=== PATIENT | male | born 1980 | race Caucasian/White ===

== ENCOUNTER 2019-05-14 10:11 | Emergency (ER) | payer OTHER, SELFPAY ==
--- NOTE | 2019-05-14 10:17 | ED.GENADULT ---
HPI - General Adult General Chief complaint: Upper Respiratory Infection Stated complaint: sore throat Time Seen by Provider: 05/14/19 10:17 Source: patient Mode of arrival: ambulatory Limitations: no limitations History of Present Illness HPI narrative: 38-year-old male patient presents to the [facility] with complaints of sore throat and swollen tonsils for about 6 days now. Patient denies any fevers, coughing, chest pain or shortness of breath. Patient states he has had a little bit of a stuffy nose and drainage to the back of the throat. Patient states he did get a flu shot this year. Patient does work as a nurse at [employer]. Denies any abdominal pain, nausea, vomiting or diarrhea. Related Data Allergies Allergy/AdvReac Type Severity Reaction Status Date / Time BLACK OLIVES Allergy Severe Anaphylactic Uncoded 07/27/11 11:53 Shock Review of Systems Review of Systems: Narrative: CONSTITUTIONAL: Denies fever, chills, or sweats. EYES: Denies visual changes, redness, or discharge. ENT: Denies rhinorrhea, congestion, sore throat, or otalgia. CARDIOVASCULAR: Denies chest pain, palpitations, or edema. RESPIRATORY: Denies cough or dyspnea. GASTROINTESTINAL: Denies abdominal pain, nausea, vomiting, or diarrhea. GENITOURINARY: Denies dysuria or hematuria. SKIN: Denies rash or itching. MUSCULOSKELETAL: Denies back pain, joint pain, or myalgia. NEUROLOGIC: Denies headache, numbness, or weakness. PSYCHIATRIC: Denies anxiety or depression. PMFSH Social History Social History Gender identity (if verbalized by the patient): Male Comments At the time of my signature I agree with nursing past medical history, surgical, social, and family history. There is no relevant family history pertinent to the presenting complaint. Exam Narrative: Exam Narrative: GENERAL: Well-appearing, well-nourished, and in no acute distress. HEAD: Normocephalic, atraumatic. EYES: PERRLA and EOMI. ENT: Nares clear, no rhinorrhea or epistaxis. Mucous membranes moist. NECK: Supple. No lymphadenopathy CHEST: Clear to auscultation. No respiratory distress. HEART: Regular rate and rhythm. No murmur heard. Normal peripheral pulses. ABDOMEN: Soft, nontender, nondistended, normal active bowel sounds. EXTREMITIES: Normal range of motion. No edema. SKIN: Warm, dry, no rash. NEURO: No focal deficits. Alert and oriented x3. Course Reevaluation(s) Reevaluation #1: Notify patient that he is positive today for strep. Discussed with him that we will discharge him home with an antibiotic for the strep infection and he can take Tylenol and ibuprofen as needed for pain. Discussed with patient as long as he is off work today and tomorrow he should be able to go back on Thursday without any issues however if he still has symptoms on Thursday I would recommend taking more time off. Patient verbalized understanding denies any other questions or concerns at this time. Date: 05/14/19 Time: 10:40 Vital Signs Vital signs: Vital Signs Temperature 36.8 C 05/14/19 10:20 Pulse Rate 63 05/14/19 10:20 Respiratory Rate 18 05/14/19 10:20 Blood Pressure 145/87 H 05/14/19 10:20 Pulse Oximetry 100 05/14/19 10:20 Temperature 36.8 C 05/14/19 10:20 Pulse Rate 63 05/14/19 10:20 Respiratory Rate 18 05/14/19 10:20 Blood Pressure 145/87 H 05/14/19 10:20 Pulse Oximetry 100 05/14/19 10:20 Vital signs reviewed. The patient has been informed that they may have pre-hypertension or Hypertension based on a BP reading in the department. I recommend that the patient call the primary care provider listed on their discharge instructions or a physician of their choice this week to arrange follow up for further evaluation of possible pre-hypertension or Hypertension Medical Decision Making Differential Diagnosis Differential Diagnosis: Differential diagnosis: Viral pharyngitis, pharyngitis, group A strep,
[2019-05-14 10:20] VITALS: BP 145/87; PULSE 63; RESP 18; TEMP 36.8; O2SAT 100
== END 2019-05-14 10:38 | disposition home or self-care (01) ==
PROVIDERS: Emergency Provider Nurse Practitioner Family
DX: J02.0 Streptococcal pharyngitis (principal)
CPT/HCPCS: 87880; 99213; G0463

== ENCOUNTER 2022-01-22 10:41 | Emergency (ER) | payer OTHER, SELFPAY ==
[2022-01-22 10:47] VITALS: BP 169/91; PULSE 78; RESP 14; TEMP 36.4; O2SAT 98
[2022-01-22 11:08] LABS: Basophils Percent Auto 0.6 % (0.2-1.2); Eosinophils Absolute Auto 0.1 K/mm3 (0-0.3); Eosinophils Percent Auto 0.7 % (0-4.4); Hematocrit 46.2 % (42.0-52.0); Hemoglobin 15.6 g/dL (14.0-18.0); Immature Granulocyte Absolute 0.02 K/mm3 (0.00-0.031); Immature Granulocyte Percent A 0.3 % (0-0.5); Lymphocytes Percent Auto 30.7 % (18.3-44.2); Mean Corpuscular HGB Conc 33.8 g/dl (32-36); Mean Corpuscular Hemoglobin 30.4 pg (26-34); Mean Corpuscular Volume 89.9 fl (80-100); Mean Platelet Volume 9.7 fl (7.4-10.4); Monocytes Absolute Auto 0.6 K/mm3 (0.1-0.6); Neutrophils Absolute Auto 4.1 K/mm3 (1.3-6.7); Neutrophils Percent Auto 59.7 % (45.5-73.1); Platelet Count Result 253 k/mm3 (150-375); Red Blood Count 5.14 M/mm3 (4.6-6.20); White Blood Count 6.9 K/mm3 (4.5-10.0)
[2022-01-22 11:19] LABS: Appearance Urine Clear (Clear); Bilirubin Urine Negative (Negative); Blood Urine Negative (Negative); Color Urine Yellow (Yellow); Glucose Urine UA Negative (Negative); Ketones Urine Negative (Negative); Leukocyte Esterase Ur Negative LEU/UL (Negative); Nitrate Urine Negative (Negative); Protein Urine Negative (Negative); Urobilinogen Urine 0.2 mg/dL (<2.0); pH Urine 5.5 (5.0-9.0)
[2022-01-22 11:26] LABS: Add Urine Microscopic? NO
[2022-01-22 11:29] LABS: Alanine Aminotransferase 39 U/L (6-50); Albumin Level 4.9 g/dL (3.5-5.1); Alkaline Phosphatase 45 U/L (38-126); Anion Gap 7 mmol/L (8-16); Aspartate Amino Transferase 41 U/L (17-59); Bilirubin,Total 1.7 mg/dL (0.2-1.3); Blood Urea Nitrogen 15 mg/dL (9-20); Calcium 8.9 mg/dL (8.4-10.2); Carbon Dioxide 29 mmol/L (22-30); Chloride 101 mmol/L (98-107); Estimated CRCL calculation 136 ml/min; Estimated Glomerular Filt Rate > 60; Glucose 100 mg/dL (65-110); Lipase 99 U/L (23-300); Potassium 4.8 mmol/L (3.4-5.0); Sodium 137 mmol/L (137-145)
[2022-01-22] MEDS: BELLADONNA ALK/PHENOB ELIX 10 ML, MAG HYDROX/ALUMINUM HYD/SIMETH 30 ML, LIDOCAINE HCL 2... PO (12:41)
--- NOTE | 2022-01-22 12:41 | ED.ABDPAIN ---
HPI - Abdominal Pain General Chief Complaint: Abdominal Pain Stated Complaint: abdominal pain x 1 month Time Seen by Provider: 01/22/22 11:53 History of Present Illness HPI narrative: 41-year-old male presenting to the emergency department for evaluation of persistent epigastric pain. Patient states since December 25 he has had epigastric pain. Patient started treating it with omeprazole on December 30. For 7 days he did take 40 mg of Toradol daily and was also take Pepto-Bismol. Patient states that he did decrease his omeprazole to 20 greater than milligrams daily after the first week. Patient reports that the Pepto-Bismol had been helping but he had worsening pain over the last few days. Patient denies frequent ibuprofen use and denies alcohol use. Patient does have a prior history of a cholecystectomy in 1999 due to gallstones. At that time patient also had pancreatitis Related Data Allergies Allergy/AdvReac Type Severity Reaction Status Date / Time BLACK OLIVES Allergy Severe Anaphylactic Uncoded 01/22/22 10:43 Shock Review of Systems Review of Systems: CONSTITUTIONAL: Denies fever, chills, or sweats. EYES: Denies visual changes, redness, or discharge. ENT: Denies rhinorrhea, congestion, sore throat, or otalgia. CARDIOVASCULAR: Denies chest pain, palpitations, or edema. RESPIRATORY: Denies cough or dyspnea. GASTROINTESTINAL: Epigastric pain GENITOURINARY: Denies dysuria or hematuria. SKIN: Denies rash or itching. MUSCULOSKELETAL: Denies back pain, joint pain, or myalgia. NEUROLOGIC: Denies headache, numbness, or weakness. [facility] Social History Social History Gender identity (if verbalized by the patient): Male Exam Narrative: APPEARANCE: Well appearing, no pain, no distress, well-nourished. HEAD: normocephalic, atraumatic. EYES: PERRLA/EOMI, conjunctivae clear. NOSE: Normal no drainage EARS:TMS clear with good light reflex. THROAT: Pharynx clear, no exudate. NECK: Supple. No adenopathy, no masses. RESPIRATORY: Airway patent, respirations nonlabored. Clear to auscultation bilaterally, no rales, rhonchi, wheezing. CARDIOVASCULAR: Regular rate and rhythm without murmurs rubs or gallops. ABDOMINAL: Soft, epigastric tenderness to palpation. No CVA tenderness to palpation MUSCULOSKELETAL: Moves all extremities. Strength/ROM intact, No edema, No calf tenderness. NEURO: Alert. Cranial nerves II through XII intact. Grossly intact SKIN: Warm, dry. Normal Color Course Course Emergency Course: Patient is afebrile with no leukocytosis. Patient hemoglobin is stable at 15.6. Patient's electrolytes are within normal limits and patient does not have an elevated lipase. Patient's UA is within normal limits. Patient did feel improved with treatment. Patient was switched to Protonix and Carafate. Patient was provided GI for follow-up. Patient was comfortable with the plan for discharge and close follow-up. Patient was also educated on reasons to return to the emergency department. Vital Signs Vital signs: Vital Signs Temperature 97.6 F 01/22/22 10:47 Pulse Rate 78 01/22/22 10:47 Respiratory Rate 14 01/22/22 10:47 Blood Pressure 169/91 H 01/22/22 10:47 Pulse Oximetry 98 01/22/22 10:47 Oxygen Delivery Room Air 01/22/22 10:47 Temperature 97.6 F 01/22/22 10:47 Pulse Rate 78 01/22/22 10:47 Respiratory Rate 14 01/22/22 10:47 Blood Pressure 169/91 H 01/22/22 10:47 Pulse Oximetry 98 01/22/22 10:47 Oxygen Delivery Room Air 01/22/22 10:47 MDM - Abdominal Pain Lab Data Attestation: I reviewed the patient's lab results. 01/22/22 10:55 01/22/22 10:55 Labs: Lab Results 01/22/22 01/22/22 01/22/22 Range/Units 10:55 10:55 11:09 WBC 6.9 (4.5-10.0) K/mm3 RBC 5.14 (4.6-6.20) M/mm3 Hgb 15.6 (14.0-18.0) g/dL Hct 46.2 (42.0-52.0) % MCV 89.9 (80-100) fl MCH 30.4 (26-34)
== END 2022-01-22 13:11 | disposition home or self-care (01) ==
PROVIDERS: Emergency Medicine; Emergency Provider Emergency Medicine
DX: R10.13 Epigastric pain (principal)
CPT/HCPCS: 36415; 80053; 81003; 83690; 85025; 99283; A9270

== ENCOUNTER 2022-03-05 00:59 | Day surgery (SDC) | payer OTHER, SELFPAY ==
[2022-02-20 14:54] VITALS: BMI 35.4
[2022-03-05 08:07] VITALS: BP 150/87; PULSE 60; RESP 20; TEMP 36; O2SAT 100
[2022-03-05] MEDS: LACTATED RINGERS 1,000 ML 150 ML IV CONT (08:13)
--- NOTE | 2022-03-05 08:35 | P.PNAN_ITS ---
Anes - Initial Pre Proc Eval Procedure: Operation Date: 03/05/22 09:30 Proposed Procedures p Esophagogastroduodenoscopy & Colonoscopy - Christian Roman MD s [facility] Hemorrhoid Treatment - Christian Roman MD Date/Time: 03/05/22 08:35 Surgeon: Christian Roman MD Pre Op Diagnosis: epigastric pain,melena,hematachezia,hemorrhoids Patient Data Age: 41 Gender: M Height: 1.88 m Weight: 123 kg Last Vital Signs Temp 96.8 F L 03/05/22 08:07 Pulse 60 03/05/22 08:07 Resp 20 03/05/22 08:07 BP 150/87 H 03/05/22 08:07 Pulse Ox 100 03/05/22 08:07 O2 Del Method Room Air 03/05/22 08:07 Allergies Allergy/AdvReac Type Severity Reaction Status Date / Time BLACK OLIVES Allergy Severe Anaphylactic Uncoded 03/05/22 08:06 Shock Home Medications Medication Instructions Recorded Confirmed Type pantoprazole 40 mg tablet,delayed 40 mg PO QAM #30 tabs 01/27/22 03/05/22 Rx release cholecalciferol (vitamin D3) 50 50 mcg PO DAILY 02/20/22 03/05/22 History mcg (2,000 unit) tablet multivitamin,tx-minerals 1 tablet PO DAILY 02/20/22 03/05/22 History omega-3 fatty acids 1,250 mg PO DAILY 02/20/22 03/05/22 History sucralfate 100 mg/mL oral 1 g PO BID epigastric pain 02/20/22 03/05/22 History suspension (Carafate) Patient hx anesthesia problems: none Family hx anesthesia problems: none Results Review: All pre-operative results and documents have been reviewed as part of the pre- operative evaluation. [facility] Past Medical History Medical History (Updated 01/27/22 @ 16:18 by Kamille Sanders APRN) Chronic diarrhea Hematochezia History of acute pancreatitis Obesity (BMI 30.0-34.9) Surgical History Surgical History History of cholecystectomy Social History Social History Smoking packs per day: 0.5 Smoking cigarettes per day: 10.0 Years smoked: 6 Smoking pack-years: 3.00 Smoking status: Former smoker Substance use: never Substance use type: does not use Living arrangements: with family Gender identity (if verbalized by the patient): Male Spiritual care concerns: No Anes - Eval Final PreProcedure Day of Procedure 03/05/22 08:35 Patient weight: obese Heart: regular rate and rhythm Lungs: clear to auscultation Airway: Mallampati scale class II Neurological: alert and oriented Last oral intake: >/= 8 hours ASA classification: III Emergent: no Anesthetic plan: proceed Anesthesia type and monitoring: general GIVS and standard monitoring Results Review: All pre-operative results and documents have been reviewed as part of the pre- operative evaluation. Informed Consent: The patient's anesthetic plan and its attendant risks and benefits were discussed with the patient/family/POA. Questions were solicited and answers provided to the satisfaction of the patient/family/POA.
--- NOTE | 2022-03-05 09:07 | PM.HPGS ---
History of Present Illness History of Present Illness Consent: Risks, benefits, and alternatives have been discussed and questions answered. Patient agrees to proceed with procedure. Chief complaint: epigastric pain,melena,hematachezia,hemorrhoids Narrative: Ramiro Gagnon is a 41 year old male with remote history of cholecystectomy with ercp, about a month ago had epigastric pain but resolved after protonix (still using), chronic diarrhea since GS removed has not tried questran. Also intermittent symptomatic hemorrhoids, never had colonoscopy Review of Systems Constitutional: Constitutional: Denies headache(s) and Denies weakness Eyes: Eyes: Denies blurry vision ENT: Reports Normal hearing present, Denies headache(s) and Denies neck pain Cardiovascular: Cardiovascular: Denies chest pain and Denies dyspnea Respiratory: Respiratory: Denies dyspnea Gastrointestinal: Gastrointestinal: Reports no additional gastrointestinal complaints Genitourinary: Genitourinary: Denies dysuria Musculoskeletal: Musculoskeletal: Denies neck pain Integumentary/Breasts: Skin/Breast: Denies dry skin Neurologic: Reports Normal hearing present, Denies headache(s) and Denies weakness Psychiatric: Psychiatric: Denies anxiety Endocrine: Endocrine: Denies change in body appearance Hematologic/Lymphatic: Hematologic/Lymphatic: Denies easy bleeding Allergic/Immunologic: Allergic/Immunologic: Denies urticaria PMFSH Past Medical History Medical History (Updated 01/27/22 @ 16:18 by Kamille Sanders APRN) Chronic diarrhea Hematochezia History of acute pancreatitis Obesity (BMI 30.0-34.9) Surgical History Surgical History History of cholecystectomy Social History Social History Smoking packs per day: 0.5 Smoking cigarettes per day: 10.0 Years smoked: 6 Smoking pack-years: 3.00 Smoking status: Former smoker Substance use: never Substance use type: does not use Living arrangements: with family Gender identity (if verbalized by the patient): Male Spiritual care concerns: No Meds Home Medications and Allergies Home Medications Medication Instructions Recorded Confirmed Type pantoprazole 40 mg tablet,delayed 40 mg PO QAM #30 tabs 01/27/22 03/05/22 Rx release cholecalciferol (vitamin D3) 50 50 mcg PO DAILY 02/20/22 03/05/22 History mcg (2,000 unit) tablet multivitamin,tx-minerals 1 tablet PO DAILY 02/20/22 03/05/22 History omega-3 fatty acids 1,250 mg PO DAILY 02/20/22 03/05/22 History sucralfate 100 mg/mL oral 1 g PO BID epigastric pain 02/20/22 03/05/22 History suspension (Carafate) Allergies Allergy/AdvReac Type Severity Reaction Status Date / Time BLACK OLIVES Allergy Severe Anaphylactic Uncoded 03/05/22 08:06 Shock Vital Signs Vital Signs - 24 hr 03/05/22 08:07 Temperature 96.8 F L Pulse Rate 60 Respiratory Rate 20 Blood Pressure 150/87 H Pulse Oximetry 100 Oxygen Delivery Room Air Exam Const: General: comfortable and no acute distress HENMT: Face/Nose/Sinus: Normal nares present Eyes: General: appearance normal, both eyes and all related structures Neck: Neck: no JVD Resp: Auscultation: clear to auscultation bilaterally Cardio: Rate: regular rate Rhythm: regular rhythm GI: Inspection: non-distended GI Palp: Yes Soft to palpation Skin: General skin exam: normal color Neuro: General: gait normal Speech: normal speech Extrem: General: normal to inspection Psych: Mental Status: mental status grossly normal Assessment and Plan Assessment and plan (1) Hematochezia: Code(s): K92.1 - Melena Status: Acute Assessment and Plan: colonoscopy, if int hemorrhoids will treat with IRC (2) Chronic diarrhea: Code(s): K52.9 - Noninfective gastroenteritis and colitis, unspecified Status: Acute Assess
--- NOTE | 2022-03-05 09:25 | SUR.OPER ---
Addendum entered by Aneta Longoria RN 03/05/22 09:33: IRC ended 0933 Addendum entered by Aneta Longoria RN 03/05/22 09:30: colonoscopy ended at 0932, IRC started at 0932 Original Note: egd ended at 0919, colonoscopy started at 0923
[2022-03-05 09:36] VITALS: BP 106/73; PULSE 67; RESP 22; O2SAT 98
[2022-03-05 09:46] VITALS: BP 123/87; PULSE 59; RESP 20; O2SAT 98
[2022-03-05 09:56] VITALS: BP 123/88; PULSE 55; RESP 19; O2SAT 100
--- NOTE | 2022-03-05 10:10 | W.PM.PROC2 ---
Procedure Note - Detailed Date of Procedure 03/05/22 Pre-op Diagnosis hemorrhoids Post-op Diagnosis Same Procedure Performed IRC of internal hemorrhoids Surgeon Christian Roman MD Anesthesia MAC (patient already received MAC because of colonoscopy) Description of Procedure found grade II internal hemorrhoids after rectal exam and anoscopy, then introduced IRC probe and hemorrhoids treated 1.5 seconds x5, no complications
== END 2022-03-05 10:05 | disposition home or self-care (01) ==
PROVIDERS: Visit Provider Internal Medicine Gastroenterology
PROC: 0DJ08ZZ Inspection of Upper Intestinal Tract, Via Natural or Artificial Opening Endoscopic (ICD-10-PCS; CPT 43235; principal; 2022-03-05 09:30)
PROC: (CPT 46930; 2022-03-05 09:30)
DX: R19.7 Diarrhea, unspecified (principal); K57.30 Diverticulosis of large intestine without perforation or abscess without bleeding; K64.8 Other hemorrhoids; K64.4 Residual hemorrhoidal skin tags; K92.1 Melena; K44.9 Diaphragmatic hernia without obstruction or gangrene; R10.13 Epigastric pain; Z87.891 Personal history of nicotine dependence
CPT/HCPCS: 45380; 43239; 46930; 88305; J2704; J7120